=== PATIENT | male | born 1945 | race American Indian/Alaskan Native ===

== ENCOUNTER 2018-02-15 09:00 | Day surgery (SDC) | payer MEDICARE ==
[~2018-02-15 09:00] MED LIST: WATER FOR IRRIG STERILE IR ONE; WATER FOR IRRIG STERILE ONE
[2018-02-15] MEDS ORDERED: NACL 0.9% 1000 ML 1,000 ML ONE (09:28)
[2018-02-15] MEDS ORDERED: NACL 0.9% 1000 ML 1,000 ML IV SCH (10:00)
[2018-02-15] MEDS ORDERED: DIPRIVAN 10 MG/ML IV ONE (10:11)
[2018-02-15] MEDS ORDERED: XYLOCAINE 2% INFILTRATI ONE (10:11)
[2018-02-15] MEDS ORDERED: ROBINUL ONE (10:30)
--- NOTE | 2018-02-15 10:45 | Short Stay Summary ---
Short Stay Documentation Date of service: 02/15/18 Narrative H&P: The patient presents for colon cancer screening. Last study over 10 years ago. Possible history prior polyps. - History Past Medical History: diabetes, hypertension, stroke, other (prostate cancer) Past Surgical History: Other (prostate surgery.) Social history: no significant social history, no smoking, no alcohol abuse - Allergies and Medications Current Medications: Allergies No Known Allergies Allergy (Unverified 02/15/18 09:00) Home Medications Medication Instructions Recorded Confirmed Last Taken Type Leuprolide Acetate [Eligard] 22.5 mg SQ 02/15/18 Unknown History Oxybutynin Chloride ER 5 tab PO 02/15/18 Unknown History Rivaroxaban [Xarelto] 20 mg PO QDAY 02/15/18 02/15/18 Unknown History Rosuvastatin (Nf) 5 tab PO 02/15/18 Unknown History Tamsulosin [Flomax] 0.4 mg PO QDAY 02/15/18 02/15/18 Unknown History amLODIPine [Norvasc] 5 tab PO QDAY 02/15/18 02/15/18 Unknown History metFORMIN [Glucophage] 500 tab PO 02/15/18 Unknown History Active Medications Sodium Chloride (Nacl 0.9% 1000 Ml) 1,000 mls @ 50 mls/hr IV DIRECT LUIS - Physical exam General appearance: no acute distress, well-nourished Integumentary: no rash, no growths, no abnormal pigmentation HEENT: Atraumatic, PERRLA, EOMI, Mucous membr. moist/pink Lungs: Clear to auscultation, Normal air movement Breasts: deferred Heart: Regular rate, Normal S1, Normal S2, No murmurs Gastrointestinal: normoactive bowel sounds, no tenderness, no distended, no masses, no guarding, no organomegaly Male Genitourinary: deferred Rectal Exam: normal exam-external/orifice, normal rectal tone, no mass Extremities: no ischemia, pulses intact, pulses symmetrical, No edema, normal temperature, normal color Neurological: Normal gait, Normal speech, Strength at 5/5 X4 ext, Normal tone, Sensation intact, Cranial nerves 3-12 NL - Brief post op/procedure progress note Date of procedure: 02/15/18 Findings: see dictated report. Estimated blood loss: none Pathology: list (transverse and sigmoid polyps) Specimen disposition: to lab Condition: stable - Disposition Condition at discharge: Good Disposition: DC-01 TO HOME OR SELFCARE - Discharge Diagnoses (1) Colon cancer screening Status: Acute Short Stay Discharge Plan Activity: other (no driving for 24 hours) Weight Bearing Status: Full Weight Bearing Diet: diabetic Follow up with: YESENIA ALVAREZ DO [Primary Care Provider] - 7 Days
--- NOTE | 2018-02-15 10:50 | Operative Report ---
Operative Report Operative Report: Date of procedure: 02/15/2018 Preprocedure diagnosis: Colon cancer screening. Last colonoscopy over 10 years with possible history of polyps. Post procedure diagnosis: Moderate diverticulosis of the left colon and right colon. 8 mm polyp in transverse colon and 7 mm polyp in sigmoid colon. Procedure: Colonoscopy to the cecum with snare polypectomy with cautery 2 Endoscopist: Dr. Yeager Anesthesia: Monitored anesthesia care per anesthesia department Estimated blood loss: 0 Medications: Monitored anesthesia care. See separate report by anesthesia for details. After careful discussion of the nature and purpose of the procedure as well as details of the technique risks benefits and alternatives the patient gave consent. Please see recent history and physical from the office. The patient was placed in the left lateral decubitus position and medicated per anesthesia. A rectal exam was performed sphincter tone was normal there were no masses palpable. The Zmagsn 570 scope was passed transanally and advanced under continuous direct vision without difficulty to the cecum. The colon was well prepared. The cecum was normal. The ascending colon reveals scattered diverticula, otherwise was normal and on forward and retroflexed views. The transverse colon revealed an 8 mm pedunculated polyp. The polyp was removed with snare electrocautery and removed by suction. The descending colon revealed scattered diverticula as did the sigmoid colon. There was a 7 mm pedunculated polyp in the mid sigmoid colon which was removed with snare electrocautery and retrieved by suction. The rectum was normal on forward and retroflexed views. The procedure was well-tolerated overall and the patient was observed in recovery. Conclusions: 8 mm transverse colon polyp. 7 mm sigmoid colon polyp. Scattered diverticula throughout. Plan: Await pathology. Repeat colonoscopy in 5 years. Signed electronically: Niraj Yeager M.D.
--- NOTE | 2018-02-15 12:02 | Anesthesia Day of Surgery ---
Anesthesia Day of Surgery - Day of Surgery Patient Examined: Yes Patient H&P Reviewed: Yes Patient is NPO: Yes Beta Blockers: No
--- NOTE | 2018-02-15 12:04 | Anesthesia Consultation ---
Anesthesia Consult and Med Hx - Airway Anesthetic Teeth Evaluation: Good ROM Head & Neck: Adequate Mental/Hyoid Distance: Adequate Mallampati Class: Class III Intubation Access Assessment: Possibly Difficult - Pulmonary Exam CTA: Yes - Cardiac Exam Cardiac Exam: No Murmur - Pre-Operative Health Status ASA Pre-Surgery Classification: ASA3 Proposed Anesthetic Plan: MAC - Pulmonary Hx Smoking: Yes Hx Asthma: No Hx Respiratory Symptoms: No SOB: No COPD: Yes - Cardiovascular System Hx Hypertension: No Hx Coronary Artery Disease: Yes (CVA) Hx Heart Attack/AMI: No Hx Angina: No Hx Percutaneous Transluminal Coronary Angioplasty (PTCA): No Hx Cardia Arrhythmia: No Hx Pacemaker: No Hx Internal Defibrillator: No Hx Valvular Heart Disease: No Hx Heart Murmur: No Hx Peripheral Vascular Disease: No - Central Nervous System Hx Neuromuscular Disorder: No Hx Seizures: No CVA: No Hx Back Pain: No Hx Psychiatric Problems: No - Gastrointestinal Hx Ulcer: No - Endocrine Hx Renal Disease: No Hx End Stage Renal Disease: No Hx Cirrhosis: No Hx Liver Disease: No Hx Non-Insulin Dependent Diabetes: Yes Hx Thyroid Disease: No Hx Hyperthyroidism: No - Other Systems Hx Alcohol Use: Yes Hx Substance Use: No Hx Cancer: Yes (prostate) Hx Obesity: No
[2018-02-15 14:48] VITALS: BP 154/81
== END 2018-02-15 11:30 | disposition home or self-care (01) ==
LOC: GIO 09:00
PROVIDERS: ATTEND Internal Medicine Gastroenterology
DX: Z12.11 Encounter for screening for malignant neoplasm of colon (principal); D12.3 Benign neoplasm of transverse colon; D12.5 Benign neoplasm of sigmoid colon; E11.9 Type 2 diabetes mellitus without complications; J44.9 Chronic obstructive pulmonary disease, unspecified; K57.30 Diverticulosis of large intestine without perforation or abscess without bleeding; I25.10 Atherosclerotic heart disease of native coronary artery without angina pectoris; I10 Essential (primary) hypertension; Z86.73 Personal history of transient ischemic attack (TIA), and cerebral infarction without residual deficits; Z98.890 Other specified postprocedural states; Z79.84 Long term (current) use of oral hypoglycemic drugs; Z79.899 Other long term (current) drug therapy; Z87.891 Personal history of nicotine dependence; Z85.46 Personal history of malignant neoplasm of prostate
CPT/HCPCS: 45385; 82962; 88305; J2704; J7030